=== PATIENT | male | born 1940 | race Caucasian/White ===

== ENCOUNTER 2017-07-27 18:21 | Inpatient (IN) | payer OTHER ==
[~2017-07-27] VITALS: Ht 170.2 cm; Wt 5.9 kg
[~2017-07-27 18:21] MED LIST: APETIGEN L790 MG/15 PO; COZAAR25 MG; ETHAMBUTOL HCL100 MG PO; PANTOPRAZOLE SO40 MG PO; RIFAMPIN300 MG PO; TAPAZOLE5 M1; Zithromax PO
[2017-07-27] MEDS ORDERED: CLONAZEPAM1 M1 (18:47)
[2017-07-27] MEDS ORDERED: ETHAMBUTOL HCL400 MG (18:48)
[2017-07-27] MEDS ORDERED: CLARITHROMYCIN500 M1 (18:49)
[2017-08-01] MEDS ORDERED: ZITHROMAX500 MG PO (08:33)
[2017-08-01] MEDS ORDERED: RIFAMPIN300 MG PO (08:33)
[2017-08-01] MEDS ORDERED: MYAMBUTOL400 MG PO (08:33)
== END 2017-08-01 09:56 | disposition home or self-care (01) | DRG 178 ==
LOC: ER 18:21 → MEDJ 07-28 07:45 → SEC-K 07-28 07:45 → MEDJ 07-28 11:26
PROC: 8E0ZXY6 Isolation (ICD-10-PCS; 2017-07-27)
PROC: 3E0F7GC Introduction of Other Therapeutic Substance into Respiratory Tract, Via Natural or Artificial Opening (ICD-10-PCS; principal; 2017-07-28)
DX: A31.0 Pulmonary mycobacterial infection (principal); R04.2 Hemoptysis; B37.0 Candidal stomatitis; J18.9 Pneumonia, unspecified organism; E05.80 Other thyrotoxicosis without thyrotoxic crisis or storm; A15.0 Tuberculosis of lung; B96.1 Klebsiella pneumoniae [K. pneumoniae] as the cause of diseases classified elsewhere